=== PATIENT | female | born 1970 | race Caucasian/White ===

== ENCOUNTER 2022-06-28 23:03 | Inpatient (IN) | payer MEDICAID ==
[~2022-06-28] VITALS: Ht 160 cm; Wt 90.3 kg
[~2022-06-28 23:03] MED LIST: BUPR-50 PO; LORA10TA7 PO; OLAN10TA26 PO
[2022-06-29] MEDS ORDERED: ZOLPIDEM TARTRATE 10 MG TABLET PO PRN (02:15)
[2022-06-29] MEDS ORDERED: QUEtiapine FUMARATE 100 MG TABLET PO PRN (02:15)
[2022-06-29 02:38] VITALS: BP 125/80
[2022-06-29] MEDS ORDERED: PNEUMOCOCCAL VACCINE POLYVALENT 0.5 ML VIAL [PPSV23] IM. ONE (02:45)
[2022-06-29] MEDS ORDERED: INFLUENZA VIRUS VACCINE QVS 2022-23 (6MO+)/PF 60 MCG/0.5 ML SYRINGE IM. ONE (02:45)
[2022-06-29 08:24] VITALS: BP 124/78
[2022-06-29] MEDS: LORazepam 2 MG TABLET PO PRN (08:31)
[2022-06-29] MEDS ORDERED: MAG HYDROX/AL HYDROX/SIMETH ES 30 ML SUSPENSION UDCUP PO PRN (12:00)
[2022-06-29] MEDS ORDERED: LOPERAMIDE HCL 2 MG CAPSULE PO PRN (12:00)
[2022-06-29] MEDS ORDERED: MAGNESIUM HYDROXIDE SUSPENSION 30 ML UDCUP PO PRN (12:00)
[2022-06-29] MEDS ORDERED: PROMETHAZINE HCL 25 MG TABLET PO PRN (12:00)
[2022-06-29] MEDS ORDERED: HydrOXYzine PAMOATE 50 MG CAPSULE PO PRN (12:00)
[2022-06-29] MEDS ORDERED: OLANZapine 5 MG RAPDIS TABLET PO PRN (12:00)
[2022-06-29] MEDS ORDERED: GuaiFENesin/D-METHORPHAN [SUGAR-FREE] 200-20MG/10 ML SYRUP UDCUP PO PRN (12:00)
[2022-06-29] MEDS ORDERED: TUBERCULIN, PURIFIED PROTEIN DERIVATIVE 5 TU/0.1 ML SYRINGE ID ONE (12:00)
[2022-06-29] MEDS: GABAPENTIN 300 MG CAPSULE PO SCH ×3 (12:56→20:28)
[2022-06-29] MEDS: THIAMINE 100 MG TABLET PO SCH (17:46)
[2022-06-29 20:00] VITALS: BP 120/76
[2022-06-29] MEDS: MELATONIN 5 MG TABLET PO SCH (20:28)
[2022-06-29] MEDS ORDERED: OLANZapine 5 MG RAPDIS TABLET PO SCH (21:00)
[2022-06-30 07:13] LABS: BASOPHILS % (AUTO) 1.2 % (0.0-2.0); EOSINOPHILS % (AUTO) 1.9 % (1.0-6.0); HEMATOCRIT 35.3 % (36-46); HEMOGLOBIN 11.6 g/dL (12.0-16.0); LYMPHOCYTES # (AUTO) 2.4 K/uL (1.0-4.8); LYMPHOCYTES % (AUTO) 43.5 % (22.0-44.0); MEAN CORPUSCULAR HEMOGLOBIN 29.9 pg (26.0-34.0); MEAN CORPUSCULAR VOLUME 91 fL (80-100); MONOCYTES # (AUTO) 0.6 K/uL (0.1-1.0); MONOCYTES % (AUTO) 10.3 % (2.0-9.0); NEUTROPHILS # (AUTO) 2.4 K/uL (1.8-7.7); NEUTROPHILS % (AUTO) 43.1 % (40.0-70.0); PLATELET COUNT (AUTO) 327 K/uL (150-450); RED BLOOD CELL COUNT(AUTO) 3.89 MIL/uL (4.00-5.20); RED CELL DISTRIBUTION WIDTH 15.3 % (11.5-14.5)
[2022-06-30 07:31] LABS: HEMOGLOBIN A1C 5.2 % (3.8-5.6)
[2022-06-30 07:38] LABS: ALANINE AMINOTRANSFERASE 19 U/L (12-78); ALBUMIN 3.2 g/dL (3.4-5.0); ALKALINE PHOSPHATASE 63 U/L (46-116); ANION GAP 6 mmol/L (8-16); ASPARTATE AMINOTRANSFERASE 14 U/L (15-37); BILIRUBIN,TOTAL 0.2 mg/dL (0.1-1.0); CALCIUM, TOTAL 8.7 mg/dL (8.8-10.5); CARBON DIOXIDE 28 mmol/L (22-29); CHLORIDE 103 mmol/L (98-107); CHOL/HDL RATIO 3.4 (3.9-5.7); CHOLESTEROL 182 mg/dL (131-200); FREE T4 (FREE THYROXINE) 1.12 ng/dL (0.76-1.46); GLUCOSE,RANDOM 97 mg/dL (70-110); HCG,QUANTITATIVE < 1 mIU/mL (0-6); HDL CHOLESTEROL 53 mg/dL (40-60); LDL CHOL (CALC.) 104 mg/dL (0-130); POTASSIUM 3.9 mmol/L (3.5-5.1); SODIUM SERUM 137 mmol/L (136-145); THYROID STIMULATING HORMONE 1.37 uIU/mL (0.36-3.74); TOTAL PROTEIN, SERUM 6.5 g/dL (6.4-8.2); TRIGLYCERIDES 127 mg/dL (15-150); UREA NITROGEN, BLOOD 12 mg/dL (7-18)
[2022-06-30 07:42] LABS: GLOMERULAR FILTR. RATE CALC > 60 mL/min (>60)
[2022-06-30 08:30] VITALS: BP 122/63
[2022-06-30] MEDS: FOLIC ACID 1 MG TABLET PO SCH (08:33)
[2022-06-30] MEDS: GABAPENTIN 300 MG CAPSULE PO SCH ×4 (08:33→21:01)
[2022-06-30] MEDS: THIAMINE 100 MG TABLET PO SCH ×2 (08:33→16:37)
[2022-06-30] MEDS: MULTIVITAMINS WITH MINERALS, THERAPEUTIC TABLET PO SCH (08:33)
[2022-06-30] MEDS: OMEGA-3/DHA/EPA/FISH OIL 1,000 MG CAPSULE PO SCH (08:33)
[2022-06-30] MEDS: NALTREXONE HCL 50 MG TABLET PO SCH (08:33)
[2022-06-30] MEDS ORDERED: HALOPERIDOL 5 MG TABLET PO PRN (15:15)
[2022-06-30 20:00] VITALS: BP 125/64
[2022-06-30] MEDS ORDERED: HALOPERIDOL 10 MG TABLET PO SCH (21:00)
[2022-06-30] MEDS: MELATONIN 5 MG TABLET PO SCH (21:01)
[2022-07-01 08:23] VITALS: BP 160/77
[2022-07-01] MEDS ORDERED: ARIPiprazole ER SUSPENSION 400 MG PRE-FILLED DUAL CHAMBER SYRINGE IM ONE (09:00)
[2022-07-01] MEDS: ARIPiprazole 10 MG TABLET PO SCH (09:14)
[2022-07-01] MEDS: THIAMINE 100 MG TABLET PO SCH ×2 (09:15→16:13)
[2022-07-01] MEDS: FOLIC ACID 1 MG TABLET PO SCH (09:16)
[2022-07-01] MEDS: MULTIVITAMINS WITH MINERALS, THERAPEUTIC TABLET PO SCH (09:16)
[2022-07-01] MEDS: GABAPENTIN 300 MG CAPSULE PO SCH ×4 (09:16→21:27)
[2022-07-01] MEDS: NALTREXONE HCL 50 MG TABLET PO SCH (09:17)
[2022-07-01] MEDS: OMEGA-3/DHA/EPA/FISH OIL 1,000 MG CAPSULE PO SCH (09:17)
[2022-07-01 20:08] VITALS: BP 140/80
[2022-07-01] MEDS ORDERED: HALOPERIDOL 10 MG TABLET PO SCH (21:00)
[2022-07-01] MEDS: MELATONIN 5 MG TABLET PO SCH (21:27)
[2022-07-02 08:05] VITALS: BP 138/77
[2022-07-02] MEDS: OMEGA-3/DHA/EPA/FISH OIL 1,000 MG CAPSULE PO SCH (08:15)
[2022-07-02] MEDS: ARIPiprazole 10 MG TABLET PO SCH (08:15)
[2022-07-02] MEDS: NALTREXONE HCL 50 MG TABLET PO SCH (08:15)
[2022-07-02] MEDS: THIAMINE 100 MG TABLET PO SCH ×2 (08:15→16:06)
[2022-07-02] MEDS: GABAPENTIN 300 MG CAPSULE PO SCH ×4 (08:15→20:07)
[2022-07-02] MEDS: MULTIVITAMINS WITH MINERALS, THERAPEUTIC TABLET PO SCH (08:15)
[2022-07-02] MEDS: FOLIC ACID 1 MG TABLET PO SCH (09:04)
[2022-07-02] MEDS: MELATONIN 5 MG TABLET PO SCH ×3 (20:08→21:40)
[2022-07-02] MEDS ORDERED: DIVALPROEX SODIUM 500 MG ER TABLET PO SCH (21:00)
[2022-07-02] MEDS: ACETAMINOPHEN 325 MG TABLET PO PRN (23:50)
[2022-07-03] MEDS: OMEGA-3/DHA/EPA/FISH OIL 1,000 MG CAPSULE PO SCH (08:42)
[2022-07-03] MEDS: ARIPiprazole 15 MG TABLET PO SCH (08:42)
[2022-07-03] MEDS: MULTIVITAMINS WITH MINERALS, THERAPEUTIC TABLET PO SCH (08:42)
[2022-07-03] MEDS: THIAMINE 100 MG TABLET PO SCH ×2 (08:43→16:10)
[2022-07-03] MEDS: NALTREXONE HCL 50 MG TABLET PO SCH (08:43)
[2022-07-03] MEDS: GABAPENTIN 300 MG CAPSULE PO SCH ×3 (08:43→16:10)
[2022-07-03] MEDS: FOLIC ACID 1 MG TABLET PO SCH (08:43)
[2022-07-03 09:59] VITALS: BP 123/79
[2022-07-03] MEDS: LORazepam 2 MG TABLET PO PRN (14:27)
[2022-07-03 20:00] VITALS: BP 116/73
[2022-07-03] MEDS: MELATONIN 5 MG TABLET PO SCH (20:17)
[2022-07-03] MEDS: GABAPENTIN 400 MG CAPSULE PO SCH (20:24)
[2022-07-04 05:11] LABS: GLUCOMETER DEV NAME(LOC) POC.BV
[2022-07-04] MEDS: GABAPENTIN 400 MG CAPSULE PO SCH ×4 (08:07→20:20)
[2022-07-04] MEDS: ARIPiprazole 15 MG TABLET PO SCH (08:07)
[2022-07-04] MEDS: MULTIVITAMINS WITH MINERALS, THERAPEUTIC TABLET PO SCH (08:07)
[2022-07-04] MEDS: FOLIC ACID 1 MG TABLET PO SCH (08:08)
[2022-07-04] MEDS: OMEGA-3/DHA/EPA/FISH OIL 1,000 MG CAPSULE PO SCH (08:08)
[2022-07-04] MEDS: NALTREXONE HCL 50 MG TABLET PO SCH (08:08)
[2022-07-04] MEDS: THIAMINE 100 MG TABLET PO SCH ×2 (08:08→16:39)
[2022-07-04 09:12] VITALS: BP 119/68
[2022-07-04] MEDS: MELATONIN 5 MG TABLET PO SCH (20:20)
[2022-07-04 21:43] VITALS: BP 115/71
[2022-07-05 08:16] VITALS: BP 119/68
[2022-07-05] MEDS: FOLIC ACID 1 MG TABLET PO SCH (09:12)
[2022-07-05] MEDS: MULTIVITAMINS WITH MINERALS, THERAPEUTIC TABLET PO SCH (09:12)
[2022-07-05] MEDS: GABAPENTIN 400 MG CAPSULE PO SCH ×4 (09:12→20:04)
[2022-07-05] MEDS: NALTREXONE HCL 50 MG TABLET PO SCH (09:12)
[2022-07-05] MEDS: OMEGA-3/DHA/EPA/FISH OIL 1,000 MG CAPSULE PO SCH (09:12)
[2022-07-05] MEDS: THIAMINE 100 MG TABLET PO SCH ×2 (09:12→17:22)
[2022-07-05] MEDS: ARIPiprazole 15 MG TABLET PO SCH (09:12)
[2022-07-05] MEDS: MELATONIN 5 MG TABLET PO SCH (20:04)
[2022-07-06] MEDS: MULTIVITAMINS WITH MINERALS, THERAPEUTIC TABLET PO SCH (08:14)
[2022-07-06] MEDS: ARIPiprazole 15 MG TABLET PO SCH (08:14)
[2022-07-06] MEDS: GABAPENTIN 400 MG CAPSULE PO SCH ×4 (08:14→20:04)
[2022-07-06] MEDS: NALTREXONE HCL 50 MG TABLET PO SCH (08:14)
[2022-07-06] MEDS: FOLIC ACID 1 MG TABLET PO SCH (08:14)
[2022-07-06] MEDS: OMEGA-3/DHA/EPA/FISH OIL 1,000 MG CAPSULE PO SCH (08:14)
[2022-07-06] MEDS: THIAMINE 100 MG TABLET PO SCH ×2 (08:14→16:06)
[2022-07-06 08:20] VITALS: BP 142/65
[2022-07-06] MEDS ORDERED: OLANZapine 5 MG RAPDIS TABLET PO PRN (15:15)
[2022-07-06] MEDS: MELATONIN 5 MG TABLET PO SCH (20:05)
[2022-07-06] MEDS ORDERED: OLANZapine 10 MG RAPDIS TABLET PO SCH (21:00)
[2022-07-06 21:56] VITALS: BP 106/62
[2022-07-07 08:13] VITALS: BP 141/89
[2022-07-07] MEDS: GABAPENTIN 400 MG CAPSULE PO SCH ×4 (08:57→20:23)
[2022-07-07] MEDS: THIAMINE 100 MG TABLET PO SCH ×2 (08:57→16:43)
[2022-07-07] MEDS: OMEGA-3/DHA/EPA/FISH OIL 1,000 MG CAPSULE PO SCH (08:57)
[2022-07-07] MEDS: FOLIC ACID 1 MG TABLET PO SCH (08:58)
[2022-07-07] MEDS: MULTIVITAMINS WITH MINERALS, THERAPEUTIC TABLET PO SCH (08:58)
[2022-07-07] MEDS: NALTREXONE HCL 50 MG TABLET PO SCH (08:58)
[2022-07-07] MEDS: LORazepam 2 MG TABLET PO PRN ×2 (09:14→16:43)
[2022-07-07 20:09] VITALS: BP 118/67
[2022-07-07] MEDS ORDERED: OLANZapine 10 MG RAPDIS TABLET PO SCH (21:00)
[2022-07-07] MEDS: MELATONIN 5 MG TABLET PO SCH (21:00)
[2022-07-08 08:11] VITALS: BP 152/62
[2022-07-08] MEDS: NALTREXONE HCL 50 MG TABLET PO SCH (08:13)
[2022-07-08] MEDS: MULTIVITAMINS WITH MINERALS, THERAPEUTIC TABLET PO SCH (08:14)
[2022-07-08] MEDS: OMEGA-3/DHA/EPA/FISH OIL 1,000 MG CAPSULE PO SCH (08:14)
[2022-07-08] MEDS: THIAMINE 100 MG TABLET PO SCH ×2 (08:14→16:17)
[2022-07-08] MEDS: GABAPENTIN 400 MG CAPSULE PO SCH ×2 (08:14→13:02)
[2022-07-08] MEDS: LORazepam 2 MG TABLET PO PRN (08:14)
[2022-07-08] MEDS: FOLIC ACID 1 MG TABLET PO SCH (08:14)
[2022-07-08 12:56] VITALS: BP 104/60
[2022-07-08] MEDS: GABAPENTIN 300 MG CAPSULE PO SCH ×2 (16:17→20:08)
[2022-07-08] MEDS: OLANZapine 5 MG RAPDIS TABLET PO SCH (16:21)
[2022-07-08] MEDS: MELATONIN 5 MG TABLET PO SCH (20:08)
[2022-07-09] VITALS: BP 132/68
[2022-07-09] MEDS: OMEGA-3/DHA/EPA/FISH OIL 1,000 MG CAPSULE PO SCH (08:19)
[2022-07-09] MEDS: OLANZapine 5 MG RAPDIS TABLET PO SCH ×4 (08:19→21:39)
[2022-07-09] MEDS: MULTIVITAMINS WITH MINERALS, THERAPEUTIC TABLET PO SCH (08:19)
[2022-07-09] MEDS: THIAMINE 100 MG TABLET PO SCH (08:19)
[2022-07-09] MEDS: NALTREXONE HCL 50 MG TABLET PO SCH (08:20)
[2022-07-09] MEDS: LORazepam 2 MG TABLET PO PRN (08:20)
[2022-07-09] MEDS: GABAPENTIN 300 MG CAPSULE PO SCH ×2 (08:20→13:07)
[2022-07-09] MEDS: FOLIC ACID 1 MG TABLET PO SCH (08:20)
[2022-07-09] MEDS: GABAPENTIN 400 MG CAPSULE PO SCH ×2 (16:30→21:37)
[2022-07-09] MEDS: MELATONIN 5 MG TABLET PO SCH (21:37)
[2022-07-10] MEDS: LORazepam 2 MG TABLET PO PRN (08:38)
[2022-07-10] MEDS: MULTIVITAMINS WITH MINERALS, THERAPEUTIC TABLET PO SCH ×2 (08:39→10:22)
[2022-07-10] MEDS: OMEGA-3/DHA/EPA/FISH OIL 1,000 MG CAPSULE PO SCH (08:39)
[2022-07-10] MEDS: OLANZapine 5 MG RAPDIS TABLET PO SCH ×4 (08:39→20:39)
[2022-07-10] MEDS: NALTREXONE HCL 50 MG TABLET PO SCH (08:39)
[2022-07-10] MEDS: GABAPENTIN 400 MG CAPSULE PO SCH ×4 (08:39→20:38)
[2022-07-10] MEDS: ACETAMINOPHEN 325 MG TABLET PO PRN (14:22)
[2022-07-10] MEDS: MELATONIN 5 MG TABLET PO SCH (20:38)
[2022-07-11 01:18] VITALS: BP 121/68
[2022-07-11] MEDS: GABAPENTIN 400 MG CAPSULE PO SCH ×4 (08:51→20:11)
[2022-07-11] MEDS: NALTREXONE HCL 50 MG TABLET PO SCH (08:51)
[2022-07-11] MEDS: ARIPiprazole 10 MG TABLET PO SCH (08:51)
[2022-07-11] MEDS: OLANZapine 5 MG RAPDIS TABLET PO SCH ×4 (08:51→20:11)
[2022-07-11] MEDS: MULTIVITAMINS WITH MINERALS, THERAPEUTIC TABLET PO SCH (08:58)
[2022-07-11] MEDS: OMEGA-3/DHA/EPA/FISH OIL 1,000 MG CAPSULE PO SCH (08:58)
[2022-07-11] MEDS: MELATONIN 5 MG TABLET PO SCH (20:11)
[2022-07-11 21:34] VITALS: BP 116/68
[2022-07-12] MEDS: NALTREXONE HCL 50 MG TABLET PO SCH (08:08)
[2022-07-12] MEDS: OLANZapine 5 MG RAPDIS TABLET PO SCH ×4 (08:08→20:32)
[2022-07-12] MEDS: OMEGA-3/DHA/EPA/FISH OIL 1,000 MG CAPSULE PO SCH (08:08)
[2022-07-12] MEDS: LORazepam 2 MG TABLET PO PRN ×2 (08:08→21:08)
[2022-07-12] MEDS: MULTIVITAMINS WITH MINERALS, THERAPEUTIC TABLET PO SCH (08:09)
[2022-07-12] MEDS: GABAPENTIN 400 MG CAPSULE PO SCH ×4 (08:09→20:32)
[2022-07-12] MEDS: ARIPiprazole 10 MG TABLET PO SCH (08:09)
[2022-07-12] MEDS: MELATONIN 5 MG TABLET PO SCH (20:32)
[2022-07-12 21:03] VITALS: BP 118/70
[2022-07-12] MEDS: ACETAMINOPHEN 325 MG TABLET PO PRN (21:08)
[2022-07-13 08:18] VITALS: BP 114/69
[2022-07-13] MEDS: MULTIVITAMINS WITH MINERALS, THERAPEUTIC TABLET PO SCH (08:21)
[2022-07-13] MEDS: GABAPENTIN 400 MG CAPSULE PO SCH ×4 (08:21→21:32)
[2022-07-13] MEDS: NALTREXONE HCL 50 MG TABLET PO SCH (08:21)
[2022-07-13] MEDS: LORazepam 2 MG TABLET PO PRN (08:28)
[2022-07-13 08:31] LABS: GLUCOMETER DEV NAME(LOC) POC.BV
[2022-07-13] MEDS ORDERED: ARIPiprazole 5 MG TABLET PO SCH (09:00)
[2022-07-13] MEDS: OMEGA-3/DHA/EPA/FISH OIL 1,000 MG CAPSULE PO SCH (09:11)
[2022-07-13] MEDS: OLANZapine 5 MG RAPDIS TABLET PO SCH ×4 (09:11→21:32)
[2022-07-13 21:30] VITALS: BP 118/72
[2022-07-13] MEDS: MELATONIN 5 MG TABLET PO SCH (21:32)
[2022-07-14 08:15] VITALS: BP 135/82
[2022-07-14] MEDS: MULTIVITAMINS WITH MINERALS, THERAPEUTIC TABLET PO SCH (09:18)
[2022-07-14] MEDS: GABAPENTIN 400 MG CAPSULE PO SCH ×4 (09:18→21:06)
[2022-07-14] MEDS: NALTREXONE HCL 50 MG TABLET PO SCH (09:18)
[2022-07-14] MEDS: OMEGA-3/DHA/EPA/FISH OIL 1,000 MG CAPSULE PO SCH (09:18)
[2022-07-14] MEDS: OLANZapine 5 MG RAPDIS TABLET PO SCH ×4 (09:20→21:00)
[2022-07-14] MEDS: MELATONIN 5 MG TABLET PO SCH (21:06)
[2022-07-14] MEDS: LORazepam 2 MG TABLET PO PRN (21:06)
[2022-07-15] MEDS: MULTIVITAMINS WITH MINERALS, THERAPEUTIC TABLET PO SCH (08:41)
[2022-07-15] MEDS: GABAPENTIN 400 MG CAPSULE PO SCH ×4 (08:41→20:16)
[2022-07-15] MEDS: LORazepam 2 MG TABLET PO PRN (08:41)
[2022-07-15] MEDS: NALTREXONE HCL 50 MG TABLET PO SCH (08:41)
[2022-07-15] MEDS: OMEGA-3/DHA/EPA/FISH OIL 1,000 MG CAPSULE PO SCH (08:41)
[2022-07-15] MEDS: OLANZapine 5 MG RAPDIS TABLET PO SCH ×4 (08:48→20:18)
[2022-07-15 10:32] VITALS: BP 137/83
[2022-07-15] MEDS ORDERED: OMEG-135 PO (18:41)
[2022-07-15] MEDS ORDERED: GABA-1201 PO (18:41)
[2022-07-15] MEDS ORDERED: MELA5TAB40 PO (18:41)
[2022-07-15] MEDS ORDERED: OLAN5TAB94 PO (18:41)
[2022-07-15] MEDS ORDERED: NALT50TA PO (18:41)
[2022-07-15] MEDS: MELATONIN 5 MG TABLET PO SCH (20:17)
[2022-07-16] MEDS: OMEGA-3/DHA/EPA/FISH OIL 1,000 MG CAPSULE PO SCH (08:47)
[2022-07-16] MEDS: NALTREXONE HCL 50 MG TABLET PO SCH (08:47)
[2022-07-16] MEDS: MULTIVITAMINS WITH MINERALS, THERAPEUTIC TABLET PO SCH (08:47)
[2022-07-16] MEDS: GABAPENTIN 400 MG CAPSULE PO SCH ×2 (08:47→13:09)
[2022-07-16] MEDS: OLANZapine 5 MG RAPDIS TABLET PO SCH ×2 (08:48→13:09)
[2022-07-16] MEDS ORDERED: GABA-1201 PO (10:49)
[2022-07-16] MEDS ORDERED: OLAN5TAB94 PO (10:52)
[2022-07-16] MEDS ORDERED: NALT50TA6 PO (10:52)
[2022-07-16] MEDS ORDERED: MELA5TAB40 PO (10:52)
[2022-07-16] MEDS ORDERED: OMEG-135 PO ×2 (10:52→11:01)
[2022-07-29] MEDS ORDERED: ARIPiprazole ER SUSPENSION 400 MG PRE-FILLED DUAL CHAMBER SYRINGE IM SCH (09:00)
[2022-07-31] MEDS ORDERED: ARIPiprazole ER SUSPENSION 400 MG PRE-FILLED DUAL CHAMBER SYRINGE IM SCH (09:00)
== END 2022-07-16 14:44 | disposition home or self-care (01) | DRG 750 ==
LOC: B3A 06-29 01:57
PROVIDERS: ADMIT Psychiatry & Neurology Psychiatry; ATTEND Psychiatry & Neurology Psychiatry
DX: F25.1 Schizoaffective disorder, depressive type (principal); E88.81 Metabolic syndrome and other insulin resistance; G40.409 Other generalized epilepsy and epileptic syndromes, not intractable, without status epilepticus; Z20.822 Contact with and (suspected) exposure to COVID-19; J44.9 Chronic obstructive pulmonary disease, unspecified; Z55.9 Problems related to education and literacy, unspecified; Z59.9 Problem related to housing and economic circumstances, unspecified; Z63.9 Problem related to primary support group, unspecified; Z65.3 Problems related to other legal circumstances; Z79.899 Other long term (current) drug therapy; Z91.51 Personal history of suicidal behavior
CPT/HCPCS: 71046; 80053; 80061; 83036; 84439; 84443; 84702; 85025; 86592; J0401; Q9967; 36415-L1; 36415-TC

== ENCOUNTER 2022-08-03 20:46 | Inpatient (IN) | payer MEDICAID, OTHER ==
[~2022-08-03] VITALS: Ht 157.5 cm
[~2022-08-03 20:46] MED LIST changes: -BUPR-50 PO; +GABA-1201 PO; -LORA10TA7 PO; +MELA5TAB40 PO; +NALT50TA PO; +NALT50TA6 PO; -OLAN10TA26 PO; +OLAN5TAB94 PO; +OMEG-135 PO
[2022-08-03] MEDS ORDERED: LORazepam 2 MG/ML VIAL IM ONE (23:45)
[2022-08-03] MEDS ORDERED: OLANZapine 5 MG TABLET PO ONE (23:45)
[2022-08-03] MEDS ORDERED: DiphenhydrAMINE HCL 50 MG/ML VIAL IM ONE (23:45)
[2022-08-04 00:55] LABS: COVID AG,FIA SOURCE NASOPHARYNGEAL
[2022-08-04] MEDS ORDERED: HydrOXYzine PAMOATE 50 MG CAPSULE PO PRN (10:30)
[2022-08-04] MEDS ORDERED: PALIPERIDONE PALMITATE 234 MG/1.5 ML SYRINGE IM ONE (10:30)
[2022-08-04] MEDS ORDERED: MAGNESIUM HYDROXIDE SUSPENSION 30 ML UDCUP PO PRN (10:30)
[2022-08-04] MEDS ORDERED: LOPERAMIDE HCL 2 MG CAPSULE PO PRN ×2 (10:30)
[2022-08-04] MEDS ORDERED: ACETAMINOPHEN 325 MG TABLET PO PRN (10:30)
[2022-08-04] MEDS ORDERED: PROMETHAZINE HCL 25 MG TABLET PO PRN (10:30)
[2022-08-04] MEDS ORDERED: MAG HYDROX/AL HYDROX/SIMETH ES 30 ML SUSPENSION UDCUP PO PRN (10:30)
[2022-08-04] MEDS ORDERED: GuaiFENesin/D-METHORPHAN [SUGAR-FREE] 200-20MG/10 ML SYRUP UDCUP PO PRN (10:30)
[2022-08-04] MEDS ORDERED: ARIPiprazole ER SUSPENSION 400 MG PRE-FILLED DUAL CHAMBER SYRINGE IM ONE (17:00)
[2022-08-04] MEDS: THIAMINE 100 MG TABLET PO SCH (18:06)
[2022-08-04] MEDS: OLANZapine 5 MG RAPDIS TABLET PO PRN (18:06)
[2022-08-04] MEDS: LORazepam 2 MG TABLET PO PRN (18:06)
[2022-08-04] MEDS: MELATONIN 5 MG TABLET PO SCH (20:39)
[2022-08-04] MEDS: OLANZapine 5 MG RAPDIS TABLET PO SCH (20:40)
[2022-08-05 08:00] VITALS: BP 131/70
[2022-08-05] MEDS: THIAMINE 100 MG TABLET PO SCH ×2 (08:17→16:00)
[2022-08-05] MEDS: MULTIVITAMINS WITH MINERALS, THERAPEUTIC TABLET PO SCH (08:17)
[2022-08-05] MEDS: OMEGA-3/DHA/EPA/FISH OIL 1,000 MG CAPSULE PO SCH (08:17)
[2022-08-05] MEDS: FOLIC ACID 1 MG TABLET PO SCH (08:17)
[2022-08-05] MEDS: GABAPENTIN 400 MG CAPSULE PO SCH ×4 (08:17→21:18)
[2022-08-05] MEDS: NALTREXONE HCL 50 MG TABLET PO SCH (08:17)
[2022-08-05 16:00] VITALS: BP 109/61
[2022-08-05] MEDS: OLANZapine 5 MG RAPDIS TABLET PO PRN (16:04)
[2022-08-05] MEDS: LORazepam 2 MG TABLET PO PRN (16:04)
[2022-08-05] MEDS: OLANZapine 5 MG RAPDIS TABLET PO SCH (21:00)
[2022-08-05] MEDS: MELATONIN 5 MG TABLET PO SCH (21:18)
[2022-08-06] MEDS: OMEGA-3/DHA/EPA/FISH OIL 1,000 MG CAPSULE PO SCH (09:50)
[2022-08-06] MEDS: MULTIVITAMINS WITH MINERALS, THERAPEUTIC TABLET PO SCH (09:50)
[2022-08-06] MEDS: NALTREXONE HCL 50 MG TABLET PO SCH (09:50)
[2022-08-06] MEDS: GABAPENTIN 400 MG CAPSULE PO SCH ×4 (09:50→20:31)
[2022-08-06] MEDS: THIAMINE 100 MG TABLET PO SCH ×2 (09:50→17:12)
[2022-08-06] MEDS: FOLIC ACID 1 MG TABLET PO SCH (09:50)
[2022-08-06] MEDS: LORazepam 2 MG TABLET PO PRN (13:57)
[2022-08-06] MEDS: OLANZapine 5 MG RAPDIS TABLET PO PRN (13:58)
[2022-08-06] MEDS: MELATONIN 5 MG TABLET PO SCH (20:31)
[2022-08-06] MEDS: OLANZapine 5 MG RAPDIS TABLET PO SCH (20:31)
[2022-08-07] MEDS: THIAMINE 100 MG TABLET PO SCH ×2 (08:20→17:07)
[2022-08-07] MEDS: FOLIC ACID 1 MG TABLET PO SCH (08:20)
[2022-08-07] MEDS: OMEGA-3/DHA/EPA/FISH OIL 1,000 MG CAPSULE PO SCH (08:20)
[2022-08-07] MEDS: LORazepam 2 MG TABLET PO PRN (08:20)
[2022-08-07] MEDS: GABAPENTIN 400 MG CAPSULE PO SCH ×4 (08:20→20:04)
[2022-08-07] MEDS: NALTREXONE HCL 50 MG TABLET PO SCH (08:20)
[2022-08-07] MEDS: MULTIVITAMINS WITH MINERALS, THERAPEUTIC TABLET PO SCH (08:20)
[2022-08-07] MEDS: OLANZapine 5 MG RAPDIS TABLET PO PRN (08:21)
[2022-08-07] MEDS: OLANZapine 5 MG RAPDIS TABLET PO SCH (20:04)
[2022-08-07] MEDS: MELATONIN 5 MG TABLET PO SCH (20:04)
[2022-08-08] MEDS ORDERED: PALIPERIDONE PALMITATE 156 MG/ML SYRINGE IM ONE (09:00)
[2022-08-08] MEDS: GABAPENTIN 400 MG CAPSULE PO SCH ×4 (09:13→21:00)
[2022-08-08] MEDS: FOLIC ACID 1 MG TABLET PO SCH (09:14)
[2022-08-08] MEDS: NALTREXONE HCL 50 MG TABLET PO SCH (09:14)
[2022-08-08] MEDS: OMEGA-3/DHA/EPA/FISH OIL 1,000 MG CAPSULE PO SCH (09:14)
[2022-08-08] MEDS: LORazepam 2 MG TABLET PO PRN ×2 (09:14→16:25)
[2022-08-08] MEDS: MULTIVITAMINS WITH MINERALS, THERAPEUTIC TABLET PO SCH (09:14)
[2022-08-08] MEDS: THIAMINE 100 MG TABLET PO SCH ×2 (09:14→16:25)
[2022-08-08] MEDS: OLANZapine 5 MG RAPDIS TABLET PO PRN ×2 (09:20→16:26)
[2022-08-08] MEDS: MELATONIN 5 MG TABLET PO SCH (21:00)
[2022-08-08] MEDS: OLANZapine 5 MG RAPDIS TABLET PO SCH (21:00)
[2022-08-08] MEDS: ZOLPIDEM TARTRATE 10 MG TABLET PO PRN (21:46)
[2022-08-09] MEDS: GABAPENTIN 400 MG CAPSULE PO SCH ×4 (09:05→20:46)
[2022-08-09] MEDS: FOLIC ACID 1 MG TABLET PO SCH (09:05)
[2022-08-09] MEDS: OMEGA-3/DHA/EPA/FISH OIL 1,000 MG CAPSULE PO SCH (09:05)
[2022-08-09] MEDS: LORazepam 2 MG TABLET PO PRN ×2 (09:05→17:25)
[2022-08-09] MEDS: OLANZapine 5 MG RAPDIS TABLET PO PRN ×2 (09:06→17:25)
[2022-08-09] MEDS: MULTIVITAMINS WITH MINERALS, THERAPEUTIC TABLET PO SCH (09:06)
[2022-08-09] MEDS: NALTREXONE HCL 50 MG TABLET PO SCH (09:06)
[2022-08-09] MEDS: THIAMINE 100 MG TABLET PO SCH ×2 (09:06→17:29)
[2022-08-09 11:26] VITALS: BP 123/64
[2022-08-09] MEDS: OLANZapine 10 MG RAPDIS TABLET PO SCH (20:46)
[2022-08-09] MEDS: MELATONIN 5 MG TABLET PO SCH (20:46)
[2022-08-10] MEDS: NALTREXONE HCL 50 MG TABLET PO SCH (09:16)
[2022-08-10] MEDS: MULTIVITAMINS WITH MINERALS, THERAPEUTIC TABLET PO SCH (09:16)
[2022-08-10] MEDS: THIAMINE 100 MG TABLET PO SCH ×2 (09:16→17:25)
[2022-08-10] MEDS: FOLIC ACID 1 MG TABLET PO SCH (09:17)
[2022-08-10] MEDS: GABAPENTIN 400 MG CAPSULE PO SCH ×4 (09:17→20:50)
[2022-08-10] MEDS: OMEGA-3/DHA/EPA/FISH OIL 1,000 MG CAPSULE PO SCH (09:17)
[2022-08-10] MEDS: MELATONIN 5 MG TABLET PO SCH (20:50)
[2022-08-10] MEDS: OLANZapine 10 MG RAPDIS TABLET PO SCH (20:50)
[2022-08-11] MEDS: THIAMINE 100 MG TABLET PO SCH ×2 (11:33→17:06)
[2022-08-11] MEDS: NALTREXONE HCL 50 MG TABLET PO SCH (11:34)
[2022-08-11] MEDS: GABAPENTIN 300 MG CAPSULE PO SCH ×3 (11:34→17:00)
[2022-08-11] MEDS: FOLIC ACID 1 MG TABLET PO SCH (11:34)
[2022-08-11] MEDS: OMEGA-3/DHA/EPA/FISH OIL 1,000 MG CAPSULE PO SCH (11:34)
[2022-08-11] MEDS: MULTIVITAMINS WITH MINERALS, THERAPEUTIC TABLET PO SCH (11:35)
[2022-08-11] MEDS: MELATONIN 5 MG TABLET PO SCH (20:49)
[2022-08-11] MEDS ORDERED: OLANZapine 10 MG RAPDIS TABLET PO SCH (21:00)
[2022-08-12] MEDS ORDERED: OLANZapine 5 MG RAPDIS TABLET PO SCH (01:47)
[2022-08-12] MEDS: GABAPENTIN 300 MG CAPSULE PO SCH ×4 (08:31→17:00)
[2022-08-12] MEDS: MULTIVITAMINS WITH MINERALS, THERAPEUTIC TABLET PO SCH (08:31)
[2022-08-12] MEDS: OMEGA-3/DHA/EPA/FISH OIL 1,000 MG CAPSULE PO SCH (08:31)
[2022-08-12] MEDS: NALTREXONE HCL 50 MG TABLET PO SCH (08:31)
[2022-08-12] MEDS: THIAMINE 100 MG TABLET PO SCH ×3 (08:32→17:00)
[2022-08-12] MEDS: FOLIC ACID 1 MG TABLET PO SCH (08:32)
[2022-08-12] MEDS ORDERED: HALOPERIDOL DECANOATE 100 MG/ML VIAL IM ONE (15:30)
[2022-08-12] MEDS: BENZTROPINE MESYLATE 2 MG TABLET PO SCH ×2 (16:21→17:00)
[2022-08-12 16:26] VITALS: BP 118/70
[2022-08-12] MEDS: MELATONIN 5 MG TABLET PO SCH (20:09)
[2022-08-12] MEDS: HALOPERIDOL 5 MG TABLET PO SCH (20:09)
[2022-08-13 08:00] VITALS: BP 141/77
[2022-08-13] MEDS: OMEGA-3/DHA/EPA/FISH OIL 1,000 MG CAPSULE PO SCH (09:04)
[2022-08-13] MEDS: THIAMINE 100 MG TABLET PO SCH ×3 (09:04→16:49)
[2022-08-13] MEDS: GABAPENTIN 300 MG CAPSULE PO SCH ×5 (09:04→16:49)
[2022-08-13] MEDS: FOLIC ACID 1 MG TABLET PO SCH (09:04)
[2022-08-13] MEDS: NALTREXONE HCL 50 MG TABLET PO SCH (09:04)
[2022-08-13] MEDS: MULTIVITAMINS WITH MINERALS, THERAPEUTIC TABLET PO SCH (09:04)
[2022-08-13] MEDS: BENZTROPINE MESYLATE 2 MG TABLET PO SCH ×5 (09:04→16:49)
[2022-08-13 16:30] VITALS: BP 143/78
[2022-08-13] MEDS: HALOPERIDOL 5 MG TABLET PO SCH (20:09)
[2022-08-13] MEDS: MELATONIN 5 MG TABLET PO SCH (20:10)
[2022-08-13] MEDS ORDERED: HALOPERIDOL 5 MG TABLET PO SCH (21:00)
[2022-08-13] MEDS: ZOLPIDEM TARTRATE 10 MG TABLET PO PRN (21:11)
[2022-08-14] MEDS: NALTREXONE HCL 50 MG TABLET PO SCH (08:06)
[2022-08-14] MEDS: OMEGA-3/DHA/EPA/FISH OIL 1,000 MG CAPSULE PO SCH (08:06)
[2022-08-14] MEDS: FOLIC ACID 1 MG TABLET PO SCH (08:06)
[2022-08-14] MEDS: MULTIVITAMINS WITH MINERALS, THERAPEUTIC TABLET PO SCH (08:07)
[2022-08-14 08:10] VITALS: BP 123/71
[2022-08-14] MEDS: GABAPENTIN 300 MG CAPSULE PO SCH ×3 (08:11→16:00)
[2022-08-14] MEDS: BENZTROPINE MESYLATE 2 MG TABLET PO SCH ×3 (08:11→16:00)
[2022-08-14] MEDS: THIAMINE 100 MG TABLET PO SCH (08:11)
[2022-08-14] MEDS: HALOPERIDOL 5 MG TABLET PO PRN (16:02)
[2022-08-14] MEDS: LORazepam 2 MG TABLET PO PRN (16:02)
[2022-08-14] MEDS: ZOLPIDEM TARTRATE 10 MG TABLET PO PRN (20:09)
[2022-08-14] MEDS: HALOPERIDOL 5 MG TABLET PO SCH (20:10)
[2022-08-14] MEDS: MELATONIN 5 MG TABLET PO SCH (20:10)
[2022-08-15] MEDS: OMEGA-3/DHA/EPA/FISH OIL 1,000 MG CAPSULE PO SCH (08:27)
[2022-08-15] MEDS: BENZTROPINE MESYLATE 2 MG TABLET PO SCH ×3 (08:27→16:31)
[2022-08-15] MEDS: MULTIVITAMINS WITH MINERALS, THERAPEUTIC TABLET PO SCH (08:27)
[2022-08-15] MEDS: GABAPENTIN 300 MG CAPSULE PO SCH ×3 (08:27→16:31)
[2022-08-15] MEDS: NALTREXONE HCL 50 MG TABLET PO SCH (08:27)
[2022-08-15 09:15] VITALS: BP 140/81
[2022-08-15 20:42] VITALS: BP 156/92
[2022-08-15] MEDS: MELATONIN 5 MG TABLET PO SCH (20:54)
[2022-08-15] MEDS: HALOPERIDOL 5 MG TABLET PO SCH (20:54)
[2022-08-16] MEDS: HALOPERIDOL 5 MG TABLET PO PRN (10:33)
[2022-08-16] MEDS: NALTREXONE HCL 50 MG TABLET PO SCH (10:33)
[2022-08-16] MEDS: OMEGA-3/DHA/EPA/FISH OIL 1,000 MG CAPSULE PO SCH (10:33)
[2022-08-16] MEDS: BENZTROPINE MESYLATE 2 MG TABLET PO SCH ×4 (10:33→18:00)
[2022-08-16] MEDS: GABAPENTIN 300 MG CAPSULE PO SCH ×3 (10:33→17:00)
[2022-08-16] MEDS: MULTIVITAMINS WITH MINERALS, THERAPEUTIC TABLET PO SCH (10:33)
[2022-08-16] MEDS: HALOPERIDOL 5 MG TABLET PO SCH (21:29)
[2022-08-16] MEDS: MELATONIN 5 MG TABLET PO SCH (21:33)
[2022-08-17] MEDS: LORazepam 2 MG TABLET PO PRN ×2 (08:35→12:51)
[2022-08-17] MEDS: MULTIVITAMINS WITH MINERALS, THERAPEUTIC TABLET PO SCH (08:35)
[2022-08-17] MEDS: BENZTROPINE MESYLATE 2 MG TABLET PO SCH ×3 (08:35→16:53)
[2022-08-17] MEDS: OMEGA-3/DHA/EPA/FISH OIL 1,000 MG CAPSULE PO SCH (08:35)
[2022-08-17] MEDS: GABAPENTIN 300 MG CAPSULE PO SCH ×3 (08:36→16:53)
[2022-08-17] MEDS: HALOPERIDOL 5 MG TABLET PO PRN ×2 (08:36→12:51)
[2022-08-17] MEDS: NALTREXONE HCL 50 MG TABLET PO SCH (08:36)
[2022-08-17] MEDS: HALOPERIDOL 5 MG TABLET PO SCH (20:30)
[2022-08-17] MEDS: MELATONIN 5 MG TABLET PO SCH (20:53)
[2022-08-18 08:00] VITALS: BP 112/66
[2022-08-18] MEDS: BENZTROPINE MESYLATE 2 MG TABLET PO SCH ×3 (08:29→16:31)
[2022-08-18] MEDS: NALTREXONE HCL 50 MG TABLET PO SCH (08:29)
[2022-08-18] MEDS: OMEGA-3/DHA/EPA/FISH OIL 1,000 MG CAPSULE PO SCH (08:29)
[2022-08-18] MEDS: GABAPENTIN 300 MG CAPSULE PO SCH ×3 (08:29→16:31)
[2022-08-18] MEDS: MULTIVITAMINS WITH MINERALS, THERAPEUTIC TABLET PO SCH (08:29)
[2022-08-18 16:00] VITALS: BP 121/60
[2022-08-18] MEDS ORDERED: MELA5TAB40 PO (17:15)
[2022-08-18] MEDS ORDERED: GABA-1181 PO (17:15)
[2022-08-18] MEDS ORDERED: OMEG-135 PO (17:15)
[2022-08-18] MEDS ORDERED: NALT50TA PO (17:15)
[2022-08-18] MEDS ORDERED: BENZ2TAB76 PO (17:15)
[2022-08-18] MEDS ORDERED: HALO10TA21 PO (17:15)
[2022-08-18] MEDS ORDERED: HALO100V36 IM (17:15)
[2022-08-18] MEDS: MELATONIN 5 MG TABLET PO SCH (20:37)
[2022-08-18] MEDS ORDERED: HALOPERIDOL 10 MG TABLET PO SCH (21:00)
[2022-08-19] MEDS: OMEGA-3/DHA/EPA/FISH OIL 1,000 MG CAPSULE PO SCH (08:32)
[2022-08-19] MEDS: NALTREXONE HCL 50 MG TABLET PO SCH (08:32)
[2022-08-19] MEDS: BENZTROPINE MESYLATE 2 MG TABLET PO SCH (08:35)
[2022-08-19] MEDS: MULTIVITAMINS WITH MINERALS, THERAPEUTIC TABLET PO SCH (08:35)
[2022-08-19] MEDS: GABAPENTIN 300 MG CAPSULE PO SCH (08:35)
[2022-08-26] MEDS ORDERED: HALOPERIDOL DECANOATE 100 MG/ML VIAL IM SCH (09:00)
[2022-09-01] MEDS ORDERED: ARIPiprazole ER SUSPENSION 400 MG PRE-FILLED DUAL CHAMBER SYRINGE IM SCH (09:00)
== END 2022-08-19 12:00 | disposition home or self-care (01) | DRG 750 ==
LOC: EMS 20:47 → 3EC 08-04 01:24
PROVIDERS: ADMIT Psychiatry & Neurology Psychiatry; ATTEND Psychiatry & Neurology Psychiatry
DX: F25.9 Schizoaffective disorder, unspecified (principal); G40.909 Epilepsy, unspecified, not intractable, without status epilepticus; D64.9 Anemia, unspecified; K21.9 Gastro-esophageal reflux disease without esophagitis; N94.6 Dysmenorrhea, unspecified; E66.9 Obesity, unspecified; F17.210 Nicotine dependence, cigarettes, uncomplicated; Z55.9 Problems related to education and literacy, unspecified; Z59.9 Problem related to housing and economic circumstances, unspecified; Z63.9 Problem related to primary support group, unspecified; Z65.3 Problems related to other legal circumstances; Z68.35 Body mass index [BMI] 35.0-35.9, adult; Z91.14 Patient's other noncompliance with medication regimen; Z91.199 Patient's noncompliance with other medical treatment and regimen due to unspecified reason; Z91.410 Personal history of adult physical and sexual abuse; Z88.8 Allergy status to other drugs, medicaments and biological substances; Z79.899 Other long term (current) drug therapy
CPT/HCPCS: 80173; 99285; J0401; J1200; J1631; J2060; Q9967